=== PATIENT | male | born 1985 | race Two or more races ===

== ENCOUNTER 2024-07-09 21:10 | Emergency (ER) | payer OTHER, SELFPAY ==
[2024-07-09 21:21] VITALS: BP 124/77
[2024-07-09 22:39] VITALS: BP 140/90
--- NOTE | 2024-07-10 01:19 | ED.GENMED ---
History of Present Illness
<ROSSI Garcia - Last Filed: 07/10/24 01:41>
General
Chief Complaint: Musculo-Skeletal Complaint
Source: patient
Time Seen by Provider: 07/10/24 01:04
Nursing documentation reviewed up to this point in time: agreed with
History of Present Illness
History of Present Illness:
Patient is a 38 year old male presenting to the ED with complaints of left arm pain x 1 month. Patient states he hasn't been able to sleep for a month because his arm has been hurting. He does not remember doing anything when the pain started. The
pain is described as tingling running from his neck all the way down his arm to his fingers. There are also bouts of sharp pain throughout his arm. He has tried Tylenol Ibuprofen and oxycodone which all did not help the pain. The pain is not worse
with movement but worse when he lays on it. He currently rates the pain a 9/10. He denies headache chest pain sob numbness.
Patient has no significant PMH and is not on any daily medication. He denies tobacco and alcohol use.
Review of Systems
<ROSSI Garcia - Last Filed: 07/10/24 01:41>
Review of Systems
Allergies reviewed?: Yes
Constitutional: Reports no symptoms
Respiratory: Reports no symptoms
Cardiac: Reports no symptoms
Musculoskeletal: Reports muscle pain and neck pain
Neurological: Reports other (tingling in arm )
Phy Exam
<ROSSI Garcia - Last Filed: 07/10/24 01:41>
General Physical Exam
General Presentation: mild distress
General age: appears stated age
General Habitus: normal
General Mental: alert
Cardiovascular Exam
Cardiovascular Exam: regular rate/rhythm, no edema, no gallop, no JVD and no murmur
Pulmonary Exam
Pulmonary Exam: lungs clear, no respiratory distress, no rales, chest non tender, no crackles, no rhonchi, no stridor, no wheezing and no cough
Sensory
Sensory Exam: intact (sensation intact to light touch in upper extremities b/l )
Musculoskeletal Exam
Musculoskeletal Exam: full ROM, neck pain, no edema, neuro vasc intact and other (pain with shoulder/elbow flexion/extension against resistance. Pain not elicited with AROM)
Course
<ROSSI Garcia - Last Filed: 07/10/24 01:41>
Orders/Labs/Results
Orders:
Orders
07/10/24 01:44
Ketorolac [Toradol] 30 mg IM NOW STA
CR Chest - 2 Views Urgent
Comment:
Reason For Exam: left arm pain, cp
Vital Signs
Initial and Last Documented VS:
Initial Vital Signs
Temp Pulse Resp BP Pulse Ox
98.3 F 95 18 124/77 98
07/09/24 21:21 07/09/24 21:21 07/09/24 21:21 07/09/24 21:21 07/09/24 21:21
Last Documented Vital Signs
Temp Pulse Resp BP Pulse Ox
98.3 F 82 22 128/78 100
07/09/24 21:21 07/10/24 01:36 07/10/24 01:36 07/10/24 01:36 07/10/24 01:36
<Waldo White DO - Last Filed: 07/10/24 01:58>
Orders/Labs/Results
Orders:
Orders
07/10/24 01:44
Ketorolac [Toradol] 30 mg IM NOW STA
CR Chest - 2 Views Urgent
Comment:
Reason For Exam: left arm pain, cp
Vital Signs
Initial and Last Documented VS:
Initial Vital Signs
Temp Pulse Resp BP Pulse Ox
98.3 F 95 18 124/77 98
07/09/24 21:21 07/09/24 21:21 07/09/24 21:21 07/09/24 21:21 07/09/24 21:21
Last Documented Vital Signs
Temp Pulse Resp BP Pulse Ox
98.3 F 82 22 128/78 100
07/09/24 21:21 07/10/24 01:36 07/10/24 01:36 07/10/24 01:36 07/10/24 01:36
<ROSSI Garcia - Last Filed: 07/10/24 01:41>
MDM/Problems Addressed
Differential Diagnosis Includes:
Muscle strain, impinged nerve
MDM/Problems Addressed:
Give gabapentin
<ROSSI Garcia - Last Filed: 07/10/24 01:41>
*Critical Care Note
Total Time (30-74mins, 75-104mins- exclusive of procedures): Not Applicable
ED Attending Note
<ROSSI Garcia - Last Filed: 07/10/24 01:41>
-
Portions of this chart may have been created with voice recognition software.� Occasional wrong word or��sound alike� substitutions may have occurred due to the inherent limitations of voice recognition software.
<Waldo White DO - Last Filed: 07/10/24 01:58>
ED Attending Note
Patient seen and examined by attending physician: Yes
I performed the substantive portion of visit, reviewed & personally made and approve the management plan that is documented in note by myself or HAMIDA.: Yes
ED Attending Note:
38-year-old male that presents to the Emergency Department with left arm pain. States that it has been ongoing for the last month. He denies any trauma. He states that he has left-sided neck pain. When he moves his neck he gets pain down his
left arm. He has not had insurance and has been seen by various doctors who prescribed a muscle relaxant which seemed to only help briefly. He took one of his 's oxycodone which made him somnolent but did not alleviate his symptoms. Denies
any chest pain or shortness of breath. Patient requesting MRI. Patient was seen in conjunction with the PA student. I have reviewed and agree with the history and treatment plan presented. On my independent physical exam, patient is awake,
alert, and oriented x3, Minimal acute distress. Full range of motion including muscle strength in the left arm. He does have left cervical paraspinal musculature tenderness to palpation.
Patient to get a chest x-ray. I will give him a dose of Toradol. Patient to have Neurontin sent to the pharmacy.
Discharge Plan
Departure
Patient Disposition: Home (Routine Discharge)
Date of Disposition: 07/10/24
Time of Disposition: 01:54
Patient with high blood pressure during this ER visit?: Yes
Condition: Good
Discharge Problem:
Nerve pain, Arm paresthesia, left
Instructions: Neuropathic pain, Muscle and Bone Pain (DC)
Prescriptions:
New
gabapentin [Neurontin] 100 mg capsule
100 mg PO TID Qty: 14 0RF
diclofenac sodium 75 mg tablet,delayed release (DR/EC)
75 mg PO BID Qty: 14 0RF
Referrals:
[facility] [Provider Group]
Livier Booker MD [Family Provider] -
Nakul Licona MD [Active] -
Activity Restrictions/Additional Instructions:
It was a pleasure meeting you and taking part in your care. We hope for your continued healing and wellness.
Please read discharge instructions in their entirety. However, they are for general education and may not describe your exact diagnosis at discharge. Information on your ER visit and medical conditions were discussed with you along with appropriate
follow up information...
If indicated, please take your medications as instructed and indicated on discharge paperwork.
Please schedule a follow up appointment as directed. Call to schedule an appointment
Please return to the emergency department with ANY change in, persisting, or worsening of symptoms. If any of your symptoms do not improve, or persist, or become more severe within 6-12 hours, please return to the emergency department for further
care.
Please return to the emergency department if you develop a headache, neck pain/stiffness, fever greater than 100.4F, chest pain, shortness of breath, persistent nausea, vomiting, slurred speech, difficulty walking, numbness/tingling, weakness, signs
of infection or any other symptoms that are worrisome to you.
If you have any questions or concerns please do not hesitate to call the Hospital at
Interventions
Interventions:
*Risk Screen - Suicide Last Done: 07/09/24 21:21
*General Assessment Last Done: 07/09/24 21:21
*Neglect/Abuse Screening Last Done: 07/09/24 21:21
ED- Fall Risk Assessment Last Done: 07/09/24 22:39
ED-Musculoskeletal Assessment Last Done: 07/09/24 22:39
Discharge Date and Time
Print Language: MAURITIAN
[2024-07-10 01:36] VITALS: BP 128/78
[2024-07-10] MEDS: TORADOL 30 MG IM (01:50)
== END 2024-07-10 02:02 | disposition home or self-care (01) ==
LOC: EMR 21:10
PROVIDERS: EMERGENCY PHYSICIAN Student in an Organized Health Care Education/Training Program; FAMILY PHYSICIAN Internal Medicine
DX: M79.2 Neuralgia and neuritis, unspecified (principal); R20.2 Paresthesia of skin; R03.0 Elevated blood-pressure reading, without diagnosis of hypertension
CPT/HCPCS: 99284; 96372; 71046